=== PATIENT | female | born 1955 ===

== ENCOUNTER 2022-01-21 05:30 | Day surgery (SDC) | payer OTHER ==
[~2022-01-21 05:30] MED LIST: COZAAR50 MG PO; FOLIC A PO; HUMALOG; LANTUS; SIMVASTA PO; SYNTHROID50 MCG PO; TOPROL XL25 M1 PO
== END 2022-01-21 12:30 | disposition home or self-care (01) ==
LOC: CIR.AMB 05:30
PROVIDERS: ATTEND Orthopaedic Surgery Hand Surgery
DX: G56.01 Carpal tunnel syndrome, right upper limb (principal)

== ENCOUNTER 2022-05-13 06:23 | Day surgery (SDC) | payer OTHER ==
[~2022-05-13] VITALS: Ht 139.7 cm; Wt 69.4 kg
== END 2022-05-13 15:35 | disposition home or self-care (01) ==
LOC: CIR.AMB 06:23
PROVIDERS: ATTEND Orthopaedic Surgery Hand Surgery
DX: G56.02 Carpal tunnel syndrome, left upper limb (principal); Z20.822 Contact with and (suspected) exposure to COVID-19; I10 Essential (primary) hypertension; I25.2 Old myocardial infarction; Z95.5 Presence of coronary angioplasty implant and graft; E03.9 Hypothyroidism, unspecified; M19.90 Unspecified osteoarthritis, unspecified site; E11.9 Type 2 diabetes mellitus without complications; E66.9 Obesity, unspecified; Z79.4 Long term (current) use of insulin